=== PATIENT | male | born 1960 | race Caucasian/White ===

== ENCOUNTER → 2023-06-27 06:29 | Day surgery (SDC) | payer BC, SELFPAY | LOC: GI 06:29 | PROVIDERS: ATTENDING PHYSICIAN Internal Medicine Gastroenterology | DX: Z12.11 Encounter for screening for malignant neoplasm of colon (principal); K64.8 Other hemorrhoids; D12.3 Benign neoplasm of transverse colon; D12.4 Benign neoplasm of descending colon; Z86.010 Personal history of colon polyps | CPT/HCPCS: 45385; 45380; 88305 ==

== ENCOUNTER → 2023-10-30 15:24 | Outpatient (REF) | payer BC, SELFPAY | LOC: MRI 3T 15:24 | PROVIDERS: ATTENDING PHYSICIAN Physician Assistant; FAMILY PHYSICIAN Family Medicine | DX: R97.20 Elevated prostate specific antigen [PSA] (principal); Z80.42 Family history of malignant neoplasm of prostate | CPT/HCPCS: 72197; A9575 ==

== ENCOUNTER 2023-12-07 06:11 | Inpatient (IN) | payer BC, SELFPAY ==
[2023-12-01 10:08] LABS: Urine Albumin Negative (Neg - Trace); Urine Bilirubin Negative (Negative); Urine Character Clear (Clear); Urine Color Yellow; Urine Glucose Negative (Negative); Urine Ketone Negative (Negative); Urine Leukocyte Negative (Negative); Urine Nitrite Negative (Negative); Urine Occult Blood Trace (Negative); Urine Urobilinogen Negative (Neg - 1+)
[2023-12-01 10:12] LABS: Hematocrit 42.7 % (39.0-52.0); Hemoglobin 15.3 g/dL (13.0-18.0); Mean Corp Hgb Conc. 35.8 g/dL (33.0-37.0); Mean Platelet Volume 9.2 fL (7.4-10.4); Platelet Count 241 10^3/uL (130-400); Red Blood Cell Count 4.64 10^6/uL (4.70-6.10); Red Cell Dist. Width 11.8 % (11.5-14.5); White Blood Cell Count 5.4 10^3/uL (4.8-10.8)
[2023-12-01 10:19] LABS: INR 0.95; PT 12.5 Sec (11.4-14.6)
[2023-12-01 10:20] LABS: APTT 30.7 Sec (23.4-35.0)
[2023-12-01 10:24] LABS: Urine Bacteria Few (Negative); Urine Red Blood Cell 0-2 /HPF (0-2); Urine Squamous Cell 0-2 /LPF (Few); Urine White Cell 0-2 /HPF (0-5)
[2023-12-01 10:26] LABS: Blood Urea Nitrogen 10 mg/dl (9-20); Calcium 9.5 mg/dl (8.4-10.2); Carbon Dioxide 25 mmol/L (22-30); Chloride 101 mmol/L (98-107); Glucose 91 mg/dl (70-99); Potassium 4.3 mmol/L (3.5-5.1); Sodium 135 mmol/L (135-145); eGFR > 60.00
[2023-12-04 11:58] VITALS: BMI 24.5
[2023-12-07] VITALS (16 sets, daily range): BP systolic 81–136; BP diastolic 51–96; BMI 24.5
[2023-12-07] MEDS: NEBCIN 480 MG/100 ML ENEMA 1 BOTTLE RECTAL (06:45)
[2023-12-07] MEDS: NORMOSOL-R 1000 IV ×3 (06:47→20:02)
--- NOTE | 2023-12-07 10:02 | W.IMMPOSTOP ---
Surgical Immed Post Op Note
-
Primary Surgeon: Claudio
Assisting Surgeon: Kyung
Pre-op Diagnosis: Prostate cancer
Post-op Diagnosis: Same
Procedure Performed: Radical perineal prostatectomy, bladder neck reconstruction
Anesthesia Type: GET
Specimen / Cultures: prostate, bladder neck and urethral margins for frozen section
Estimated Blood Loss: 300 ml
Complications: None
[2023-12-07] MEDS: VALIUM INJECTION 5 MG IV (10:06)
--- NOTE | 2023-12-07 11:37 | PTCARENOTE ---
pt admitted to [facility] rm 2109 at 1050 from the PACU. pt arrived via bed, awake and alert. at bedside. assessment and admission database completed as documented. pt and oriented to room, bed controls, plan of care and bedrest until 1800
today. pt tolerating sips of water. denies nausea. IVF infusing without difficulty. Chapman catheter patent with green output noted. perineal dressing clean and dry. safe environment maintained. will observe.
[2023-12-07] MEDS: COLACE 100 MG PO ×2 (12:29→16:28)
[2023-12-07] MEDS: TORADOL 15 MG IV ×2 (16:26→22:01)
--- NOTE | 2023-12-07 17:24 | CM ---
CM reviewed medical records. Patient confirmed demographics. Patient lives independently with . Discussed home care options. Patient is agreeable to [facility]. REferral sent via [facility].
[2023-12-07] MEDS: OFIRMEV 100 IV (19:51)
[2023-12-07] MEDS: POLYSPORIN/DOUBLE ANTIBIOTIC 1 APPLIC TOPICAL (20:05)
[2023-12-08] MEDS: TORADOL 15 MG IV ×2 (04:31→16:49)
[2023-12-08] MEDS: NORMOSOL-R 1000 IV (06:20)
[2023-12-08] MEDS: LEVAQUIN 100 IV (06:21)
[2023-12-08 07:11] VITALS: BP 113/76
[2023-12-08 07:55] LABS: Hematocrit 32.7 % (39.0-52.0); Hemoglobin 11.3 g/dL (13.0-18.0); Mean Corp Hgb Conc. 34.6 g/dL (33.0-37.0); Mean Corpuscular Hgb 32.9 pg (27.0-31.0); Mean Corpuscular Volume 95.3 fL (80.0-94.0); Mean Platelet Volume 9.4 fL (7.4-10.4); Platelet Count 228 10^3/uL (130-400); Red Blood Cell Count 3.43 10^6/uL (4.70-6.10); Red Cell Dist. Width 11.9 % (11.5-14.5); White Blood Cell Count 10.1 10^3/uL (4.8-10.8)
[2023-12-08 08:35] LABS: Blood Urea Nitrogen 9 mg/dl (9-20); Calcium 7.9 mg/dl (8.4-10.2); Carbon Dioxide 26 mmol/L (22-30); Chloride 104 mmol/L (98-107); Estimated Creatinine Clearance 96 ml/min; Glucose 104 mg/dl (70-99); Potassium 3.7 mmol/L (3.5-5.1); Sodium 133 mmol/L (135-145); eGFR > 60.00
[2023-12-08] MEDS: COLACE 100 MG PO ×3 (09:04→16:43)
[2023-12-08] MEDS: POLYSPORIN/DOUBLE ANTIBIOTIC 1 APPLIC TOPICAL (09:04)
--- NOTE | 2023-12-08 09:14 | W.PN.SURGUPD ---
Addendum entered and electronically signed by Chriss Snyder MD 12/08/23 14:22:
CDI query answer: Hgb 11 as expected postoperatively. Clinically insignificant laboratory result
Original Note:
Surgical Update
Surgical Update
Stable 1 day s/p radical perineal prostatectomy
Labs good
Tolerating diet
Urine clear
---
Home later today if stable
--- NOTE | 2023-12-08 10:49 | VNURNOTE ---
Home Health Liaison met with patient at bedside to discuss [facility] nurse visits, schedule and purpose. Patient is agreeable and understands that visits at home will be 1-3 x per week to assess and teach medical management. [facility] brochure provided with
contact information. Patient is aware that [facility] will contact them for start of care in 1-2 days after discharge from . [facility] referral completed in [facility] Port.
--- NOTE | 2023-12-08 11:00 | CM ---
CM following re: discharge planning.
Reviewed pt's chart, met with pt.
Per Surgery, home today if stable.
Pt is aware, expressed his agreement with discharge and he stated his spouse will transport home.
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 Pt reports he will need home care coordinator for couple of visits to check on Chapman catheter.
[facility] noted and [facility] accepted pt for [facility]N services.
Please fax discharge instructions to [facility]N at [phone]
D/C plan: home with [facility] and family support. Spouse to transport.
[2023-12-08] MEDS: TORADOL IV (12:14)
--- NOTE | 2023-12-08 14:05 | PN.CDI ---
CDI
- -
CDI:
Physician Documentation Request
Admit Date: 12/07/23 06:11
Dear Doctor Claudio,
Please review the following and provide your response in the progress notes.
Clinical Indicators:
12/06 Radical perineal prostatectomy, bladder neck reconstruction
Estimated Blood Loss: 300 ml
Laboratory Tests
12/01/23 12/08/23
06:51
Hgb 15.3 11.3 L D
Based on the above please clarify the most likely type of condition/diagnosis evaluated, monitored and/or treated?
Acute blood loss anemia
Abnormal lab value, clinically insignificant
Other(please specify)
Use of terms such as suspected, likely, concern for, or probable (associated with a specific diagnosis that is being evaluated, monitored, or treated as if it exists) are acceptable and can be coded in the inpatient setting, when documented at the
time of discharge.
Thank you,
Estephanie Bradley RN BSN CCDS
CDI Specialist
please contact via tiger text
Please use your independent medical judgment in providing your response.
[2023-12-08 15:19] VITALS: BP 131/98
--- NOTE | 2023-12-08 17:05 | W.PN.SURGUPD ---
Surgical Update
Surgical Update
Dressing removed
[place] drain out
Patient taught use of leg bag
Home tonight
--- NOTE | 2023-12-11 10:41 | W.DS.TRANS ---
DC Summary - [employer]
-
Discharge Instructions:
Sleep Apnea Risk Intermediate
Discharge Diagnosis/Procedures prostate cancer
Diet No restrictions
Activity No strenuous activity
Additional Activity for 1 week
Driving Restrictions No driving for 1 week
Bathing Restrictions Shower off after each BM for the next 5 days
Other Services VN
Wound Care [facility] to remove Chapman catheter around 10am 12/19/23
Instructions:
Stand-Alone Forms:
Changes to Home Medications: No
Discharge Medications:
DC Medications w/original date entered in [employer]
dextroamphetamine-amphetamine 20 mg tablet (Adderall) 20 mg PO PRN PRN adhd 12/05/23
lisinopril 20 mg tablet 20 mg PO DAILY 12/05/23
Home Medication Changes
Pending Results: No
== END 2023-12-08 17:30 | disposition home health service (06) | DRG 708 ==
LOC: 2 SOUTH 06:11
PROVIDERS: ADMITTING PHYSICIAN Specialist; FAMILY PHYSICIAN Family Medicine
PROC: 0TBC0ZX Excision of Bladder Neck, Open Approach, Diagnostic (ICD-10-PCS; 2023-12-07)
PROC: 0VTQ0ZZ Resection of Bilateral Vas Deferens, Open Approach (ICD-10-PCS; 2023-12-07)
PROC: 0VT00ZZ Resection of Prostate, Open Approach (ICD-10-PCS; 2023-12-07)
PROC: 0VT30ZZ Resection of Bilateral Seminal Vesicles, Open Approach (ICD-10-PCS; 2023-12-07)
PROC: 0TBD0ZX Excision of Urethra, Open Approach, Diagnostic (ICD-10-PCS; 2023-12-07)
DX: C61 Malignant neoplasm of prostate (principal); R39.15 Urgency of urination; R35.1 Nocturia; Z79.899 Other long term (current) drug therapy; Z80.42 Family history of malignant neoplasm of prostate; Z80.52 Family history of malignant neoplasm of bladder
CPT/HCPCS: 88305; 88309; 88332; 36415; 80048; 81003; 81015; 85027; 85610; 85730; 86850; 86900; 86901; 88331; 93005; A4648

== ENCOUNTER → 2024-02-07 06:46 | Outpatient (REF) | payer BC, SELFPAY ==
[2024-02-07 08:42] LABS: PSA, Total - Diagnostic < 0.06 ng/ml (0.0-4.0)
== END ==
LOC: REG 06:46
PROVIDERS: ATTENDING PHYSICIAN Specialist; FAMILY PHYSICIAN Family Medicine
DX: C61 Malignant neoplasm of prostate (principal)
CPT/HCPCS: 36415; 84153

== ENCOUNTER → 2024-05-09 09:50 | Outpatient (REF) | payer BC, SELFPAY ==
[2024-05-09 12:47] LABS: PSA, Total - Diagnostic < 0.06 ng/ml (0.0-4.0)
== END ==
LOC: REG 09:50
PROVIDERS: ATTENDING PHYSICIAN Specialist; FAMILY PHYSICIAN Family Medicine
DX: C61 Malignant neoplasm of prostate (principal)
CPT/HCPCS: 36415; 84153

== ENCOUNTER → 2024-09-13 08:37 | Outpatient (REF) | payer MEDICARE, OTHER, SELFPAY ==
[2024-09-13 11:18] LABS: PSA, Total - Diagnostic < 0.06 ng/ml (0.0-4.0)
== END ==
LOC: REG 08:37
PROVIDERS: ATTENDING PHYSICIAN Specialist; FAMILY PHYSICIAN Family Medicine
DX: C61 Malignant neoplasm of prostate (principal)
CPT/HCPCS: 36415; 84153

== ENCOUNTER → 2025-01-09 08:25 | Outpatient (REF) | payer MEDICARE, OTHER, SELFPAY ==
[2025-01-09 09:43] LABS: Hematocrit 41.2 % (39.0-52.0); Hemoglobin 13.7 g/dL (13.0-18.0); Mean Corp Hgb Conc. 33.3 g/dL (33.0-37.0); Mean Corpuscular Volume 96.7 fL (80.0-94.0); Nucleated Red Blood Cells % 0 % (-); Platelet Count 462 10^3/uL (130-400); Red Cell Dist. Width 11.7 % (11.5-14.5)
[2025-01-09 10:26] LABS: ALT (SGPT) 13 U/L (0-50); AST (SGOT) 16 U/L (17-59); Albumin 3.4 g/dl (3.5-5.0); Alkaline Phosphatase 89 U/L (38-126); Blood Urea Nitrogen 7 mg/dl (9-20); Calcium 9.0 mg/dl (8.4-10.2); Carbon Dioxide 26 mmol/L (22-30); Chloride 102 mmol/L (98-107); Glucose 94 mg/dl (70-99); HDL Cholesterol 49 mg/dl; LDL Cholesterol, Calculated 96 mg/dl; Potassium 4.4 mmol/L (3.5-5.1); Sodium 135 mmol/L (135-145); Total Protein 6.4 g/dl (6.3-8.2); Very Low Density Lipoprotein 20 mg/dl (0-30); eGFR > 60.00
== END ==
LOC: REG 08:25
PROVIDERS: ATTENDING PHYSICIAN Physician Assistant; FAMILY PHYSICIAN Family Medicine
DX: I10 Essential (primary) hypertension (principal); R79.9 Abnormal finding of blood chemistry, unspecified; E78.00 Pure hypercholesterolemia, unspecified
CPT/HCPCS: 36415; 80053; 80061; 85025

== ENCOUNTER 2025-02-03 06:19 | Day surgery (SDC) | payer MEDICARE, OTHER, SELFPAY | END 2025-02-03 09:14 | disposition home or self-care (01) | LOC: GI 06:19 | PROVIDERS: ATTENDING PHYSICIAN Internal Medicine Gastroenterology | DX: R19.4 Change in bowel habit (principal); K60.50 Anorectal fistula, unspecified; K57.30 Diverticulosis of large intestine without perforation or abscess without bleeding; K64.8 Other hemorrhoids; K60.30 Anal fistula, unspecified; D12.3 Benign neoplasm of transverse colon | CPT/HCPCS: 45380; 88305 ==

== ENCOUNTER → 2025-04-09 07:31 | Outpatient (REF) | payer MEDICARE, OTHER, SELFPAY | LOC: PAVMRI 07:31 | PROVIDERS: ATTENDING PHYSICIAN Internal Medicine Gastroenterology; FAMILY PHYSICIAN Physician Assistant | DX: K60.329 Anal fistula, complex, unspecified (principal) | CPT/HCPCS: 72197; A9575 ==

== ENCOUNTER → 2025-04-25 08:17 | Outpatient (REF) | payer MEDICARE, OTHER, SELFPAY ==
[2025-04-25 09:04] LABS: Hematocrit 51.0 % (39.0-52.0); Hemoglobin 17.4 g/dL (13.0-18.0); Mean Corp Hgb Conc. 34.1 g/dL (33.0-37.0); Mean Corpuscular Volume 93.6 fL (80.0-94.0); Nucleated Red Blood Cells % 0 % (-); Platelet Count 234 10^3/uL (130-400); Red Cell Dist. Width 11.9 % (11.5-14.5)
[2025-04-25 09:40] LABS: ALT (SGPT) 36 U/L (0-50); AST (SGOT) 41 U/L (17-59); Albumin 4.6 g/dl (3.5-5.0); Alkaline Phosphatase 96 U/L (38-126); Blood Urea Nitrogen 8 mg/dl (9-20); Calcium 9.0 mg/dl (8.4-10.2); Carbon Dioxide 25 mmol/L (22-30); Chloride 99 mmol/L (98-107); Glucose 88 mg/dl (70-99); Potassium 4.5 mmol/L (3.5-5.1); Sodium 133 mmol/L (135-145); Total Protein 7.4 g/dl (6.3-8.2); eGFR > 60.00
[2025-04-25 10:04] LABS: PSA, Total - Diagnostic < 0.06 ng/ml (0.0-4.0)
== END ==
LOC: RCS 08:17
PROVIDERS: ATTENDING PHYSICIAN Specialist; FAMILY PHYSICIAN Family Medicine; REFERRING PHYSICIAN Podiatrist Foot Surgery
DX: C61 Malignant neoplasm of prostate (principal); M20.40 Other hammer toe(s) (acquired), unspecified foot
CPT/HCPCS: 36415; 80053; 84153; 85025; 93005